=== PATIENT | female | born 1970 | race Caucasian/White ===

== ENCOUNTER → 2020-07-06 | Day surgery (SDC) | payer MEDICARE, OTHER ==
[~2020-07-06] MED LIST: AMOX TR-K200 MG/5 M PO; BUSPIRONE HCL10 MG PO; FLUOXETINE HCL40 MG PO; LAMICTAL100 MG PO; LIPITOR 10MG TA10 MG PO; MEDROL 4MG DOSEP4 MG PO; METFORMIN HCL500 M1 PO; PERCOCET 5-3251 EACH PO; VIT C PO; VIT D 3 PO; VIT E PO; WELLBUTRIN XL150 MG PO
[2020-07-06 09:27] LABS: HCT 39.1 % (37.0-47.0); HGB 13.8 g/dl (12.5-16.0); MCH 33.7 pg (25.0-31.0); MCHC 35.3 g/dL (32.0-36.0); MCV 95.4 fL (78.0-100.0); MPV 9.3 fL (6.0-9.5); RBC 4.1 M/uL (4.20-5.40); RDW 11.6 % (11.5-14.0); WBC 8.9 K/uL (4.0-10.5)
[2020-07-06 09:58] LABS: ALBUMIN 3.6 g/dL (3.4-5.0); BILIRUBIN - TOTAL 0.4 mg/dL (0.2-1.0); BUN/CREAT RATIO (CALC) 15.6 RATIO; CREATININE 0.64 mg/dL (0.51-0.95); GLOBULIN (CALCULATION) 3.3 g/dL; POTASSIUM 3.7 mmol/L (3.5-5.1); TOTAL PROTEIN 6.9 g/dL (6.4-8.2)
== END | disposition home or self-care (01) ==
LOC: FAS 08:05
PROVIDERS: Orthopaedic Surgery
DX: M75.122 Complete rotator cuff tear or rupture of left shoulder, not specified as traumatic (principal); M75.52 Bursitis of left shoulder; M77.8 Other enthesopathies, not elsewhere classified; M19.012 Primary osteoarthritis, left shoulder; E78.00 Pure hypercholesterolemia, unspecified; F17.210 Nicotine dependence, cigarettes, uncomplicated; E11.8 Type 2 diabetes mellitus with unspecified complications; K21.9 Gastro-esophageal reflux disease without esophagitis; Z79.899 Other long term (current) drug therapy; Z88.2 Allergy status to sulfonamides
CPT/HCPCS: 36415; 71045; 80053; 84703; 93005; C1713; J0171; J0690; J0735; J1100; J2250; J2370; J2405; J2704; J2710; J2795; J3010; J7120

== ENCOUNTER 2021-06-04 11:57 | Emergency (ER) | payer MEDICARE, OTHER ==
[2021-06-04 13:18] LABS: CORONAVIRUS 2019 SARS-COV-2 NEGATIVE (NEGATIVE); INFLUENZA A NAA NEGATIVE (NEGATIVE)
[2021-06-04 13:42] LABS: EOSINOPHIL 3.9 % (0-5); HCT 43.5 % (37.0-47.0); HGB 15.4 g/dl (12.5-16.0); LYMPHOCYTE 21.3 % (15-48); MCH 32.9 pg (25.0-31.0); MCHC 35.4 g/dL (32.0-36.0); MCV 92.9 fL (78.0-100.0); MONOCYTE 6.3 % (0-12); MPV 9.7 fL (6.0-9.5); NEUTROPHIL 67.1 % (41-80); NRBC 0; PLT 202 K/uL (150-400); RBC 4.68 M/uL (4.20-5.40); RDW 11.4 % (11.5-14.0); WBC 8.1 K/uL (4.0-10.5)
[2021-06-04 13:56] LABS: BILIRUBIN NEGATIVE (NEGATIVE); BLOOD NEGATIVE Ery/uL (NEGATIVE); CLARITY CLEAR (CLEAR); COLOR YELLOW (YELLOW); GLUCOSE (U) TRACE mg/dL (NORMAL); LEUKOCYTES NEGATIVE Leu/uL (NEGATIVE); NITRITE NEGATIVE (NEGATIVE); PROTEIN NEGATIVE (NEGATIVE); SPECIFIC GRAVITY >=1.030 (1.001-1.030); UROBILINOGEN 0.2 mg/dL (0.2-1.0); pH 5.5 (5.0-9.0)
[2021-06-04 13:57] LABS: BILIRUBIN - TOTAL 0.5 mg/dL (0.2-1.0); BUN/CREAT RATIO (CALC) 8.7 RATIO; CREATININE 0.69 mg/dL (0.51-0.95); GLOBULIN (CALCULATION) 3.8 g/dL; POTASSIUM 4.2 mmol/L (3.5-5.1); TOTAL PROTEIN 7.8 g/dL (6.4-8.2)
== END 2021-06-04 15:42 | disposition home or self-care (01) ==
LOC: FER 11:57
PROVIDERS: Internal Medicine
DX: J06.9 Acute upper respiratory infection, unspecified (principal); E11.9 Type 2 diabetes mellitus without complications; F17.200 Nicotine dependence, unspecified, uncomplicated; Z20.822 Contact with and (suspected) exposure to COVID-19; Z88.1 Allergy status to other antibiotic agents
CPT/HCPCS: 36415; 71045; 80053; 81003; 85025; J2405; J7030; U0002

== ENCOUNTER 2021-08-03 13:03 | Emergency (ER) | payer MEDICARE, OTHER ==
[2021-08-03 14:27] LABS: BASOPHIL 1.4 % (0-2); EOSINOPHIL 4.7 % (0-5); HCT 40.4 % (37.0-47.0); HGB 14.8 g/dl (12.5-16.0); MCH 33.2 pg (25.0-31.0); MCHC 36.6 g/dL (32.0-36.0); MCV 90.6 fL (78.0-100.0); MONOCYTE 5.2 % (0-12); MPV 9.6 fL (6.0-9.5); NEUTROPHIL 49.3 % (41-80); NRBC 0; PLT 232 K/uL (150-400); RBC 4.46 M/uL (4.20-5.40); RDW 11.5 % (11.5-14.0); WBC 7.3 K/uL (4.0-10.5)
[2021-08-03 14:41] LABS: ALBUMIN 3.9 g/dL (3.4-5.0); BILIRUBIN - TOTAL 0.4 mg/dL (0.2-1.0); BUN/CREAT RATIO (CALC) 14.3 RATIO; CREATININE 0.77 mg/dL (0.51-0.95); GLOBULIN (CALCULATION) 3.1 g/dL; POTASSIUM 4.1 mmol/L (3.5-5.1)
[2021-08-03 15:28] LABS: AMPHETAMINES NEGATIVE (NEGATIVE); BARBITURATES NEGATIVE (NEGATIVE); BILIRUBIN NEGATIVE (NEGATIVE); BLOOD NEGATIVE Ery/uL (NEGATIVE); CLARITY CLEAR (CLEAR); COLOR YELLOW (YELLOW); ECSTASY (MDMA) NEGATIVE (NEGATIVE); GLUCOSE (U) 3+ mg/dL (NORMAL); LEUKOCYTES NEGATIVE Leu/uL (NEGATIVE); MARIJUANA (THC) NEGATIVE (NEGATIVE); METHADONE NEGATIVE (NEGATIVE); NITRITE NEGATIVE (NEGATIVE); OPIATES NEGATIVE (NEGATIVE); OXYCODONE NEGATIVE (NEGATIVE); PROTEIN NEGATIVE (NEGATIVE); UROBILINOGEN 0.2 mg/dL (0.2-1.0)
[2021-08-03 15:37] LABS: URINARY RBC RARE
== END 2021-08-03 18:16 | disposition home or self-care (01) ==
LOC: FER 13:03
PROVIDERS: Physician Assistant
DX: E11.65 Type 2 diabetes mellitus with hyperglycemia (principal); R74.01 Elevation of levels of liver transaminase levels; Z88.2 Allergy status to sulfonamides
CPT/HCPCS: 36415; 70450; 80053; 80305; 81001; 85025; 93005; J7030